=== PATIENT | female | born 2000 | race Caucasian/White ===

== ENCOUNTER 2018-12-06 23:37 | Emergency (ER) | payer OTHER ==
[2018-12-06 23:46] VITALS: RESP 18; TEMP 96.1; O2SAT 98
[2018-12-06 23:50] VITALS: BP 104/82; PULSE 79
[2018-12-07] MEDS ORDERED: TDAP VACCINE 0.5 ML SUS IM ONE ×2 (00:02→00:10)
[2018-12-07] MEDS ORDERED: SULFAMETHOXAZOLE/TRIMETHOPRI 800/160 MG PO ONE (00:03)
[2018-12-07] MEDS ORDERED: SULFAMETHOXAZOLE/TRIMETHOPRI 800/160 MG ONE (00:10)
== END 2018-12-07 00:24 | disposition home or self-care (01) | DRG 605 ==
LOC: ED 23:37
DX: S61.051A Open bite of right thumb without damage to nail, initial encounter (principal); W55.01XA Bitten by cat, initial encounter; S60.311A Abrasion of right thumb, initial encounter; W55.03XA Scratched by cat, initial encounter; B99.9 Unspecified infectious disease
CPT/HCPCS: 90471; 90715; 99282; 99283; J0696; A9270-GY; J2001

== ENCOUNTER 2018-12-07 22:44 | Emergency (ER) | payer OTHER ==
[2018-12-07 23:29] VITALS: PULSE 92; RESP 20; TEMP 99.1; O2SAT 99
[2018-12-08] MEDS ORDERED: CEFTRIAXONE 1 GM PDS IM ONE (00:02)
[2018-12-08] MEDS ORDERED: CEFTRIAXONE 1 GM PDS ONE (00:06)
[2018-12-08] MEDS ORDERED: LIDOCAINE HCL 1% MPF 30 SOL ONE (00:07)
[2018-12-08 00:28] VITALS: BP 96/63
== END 2018-12-08 00:39 | disposition home or self-care (01) | DRG 914 ==
LOC: SUPCPDRO 22:44 → ED 22:44
DX: T14.8XXA Other injury of unspecified body region, initial encounter (principal)
CPT/HCPCS: 99282; J0696; J2001